=== PATIENT | female | born 1955 | race Caucasian/White ===

== ENCOUNTER 2019-10-07 14:55 | Inpatient (IN) ==
[2019-10-07 15:43] LABS: BASO# 0.01 X1000 (0.0-0.2); BASO% 0.1 % (0.0-0.8); HEMATOCRIT 40.5 % (37.0-47.0); HEMOGLOBIN 13.1 g/dL (12.0-16.0); IMM GRAN# 0.03 X1000 (0.0-0.04); IMM GRAN% 0.4 % (0.0-0.5); LYMPH# 1.61 X1000 (1.2-3.4); LYMPH% 21.2 % (20.5-51.1); MCH 31.5 PG (27-31); MCHC 32.3 g/dL (33-37); MCV 97.4 FL (81-99); MONO# 0.49 X1000 (0.11-0.59); MONO% 6.4 % (1.7-9.3); NEUT# 5.47 X1000 (1.4-6.5); NEUT% 71.9 % (42.2-75.2); PLT 266 X1000 (130-400); RBC 4.16 XMIL (4.2-5.4); RDW 14.8 % (11.5-14.5); WBC 7.61 X1000 (4.8-10.8)
--- NOTE | 2019-10-07 15:44 | PROVIDER DOCUMENTATION ---
HPI-Screening - General Chief Complaint: Sores/Lesions Stated Complaint: FEMALE SORES ON FEET Time Seen by Provider: 10/07/19 15:41 Source: patient Allergies/Adverse Reactions: Allergies Allergy/AdvReac Type Severity Reaction Status Date / Time pregabalin [From Lyrica] Allergy Severe AGITATION Verified 09/29/18 12:46 amoxicillin [Amoxicillin] Allergy Mild VOMITING Verified 09/29/18 12:46 ceftriaxone sodium * Allergy RASH Verified 09/29/18 12:46 [From Rocephin] cephalexin monohydrate * Allergy HIVES Verified 09/29/18 12:46 [From Keflex] Home Medications: Home Medication List Medication Instructions Recorded Confirmed Last Taken Type ATORVAstatin [Lipitor] 20 mg PO DAILY 05/04/15 09/29/18 09/28/18 09:00 History Amitriptyline [Elavil] 30 mg PO HS 05/04/15 09/29/18 09/28/18 22:00 History Omeprazole 20 mg PO DAILY 05/04/15 09/29/18 09/28/18 09:00 History Cyclobenzaprine HCl 10 mg PO TID 09/29/18 09/29/18 09/29/18 09:30 History Diclofenac Sodium 1 mg TOP TID 09/29/18 09/29/18 09/28/18 00:00 History Gabapentin 300 mg PO TID 09/29/18 09/29/18 09/29/18 09:30 History Ibuprofen 800 mg PO TID PRN 10 Days #30 tab 09/29/18 Unknown Rx Lidocaine 5% Patch [Lidoderm] 1 ea TOP DAILY 10 Days #10 patch 09/29/18 Unknown Rx Promethazine HCl 25 mg PO TID 09/29/18 09/29/18 09/29/18 09:30 History Tapentadol [Nucynta] 75 mg PO TID 09/29/18 09/29/18 09/29/18 09:30 History HPI: Pt. is 64 yof that presents with c/o sores or both feet. She reports she thinks she has a UTI also. She is AO x 3 and does not appear in any distress. Physical Exam-Screening - CONSTITUTIONAL General Appearance: alert, no apparent distress, thin. negative: anxious, slow to respond, obtunded, combative - SKIN Integumentary: embolic lesions (Multiple sores on both feet with surrounding erythema.), tenderness. negative: cyanosis, mottled Screening Depart - Departure ED Screening Disposition: Continued in ED for Treatment Date of Disposition Decision: 10/07/19 Time of Disposition Decision: 15:44 DIAGNOSIS: Dysuria, Skin sore Disposition: STILL A PATIENT 30 Certified Medical Emergency: Emergent Condition: Stable Referrals and Follow-Ups: None,PCP [Primary Care Provider] - Attestation - Physician/ BERTHA Attestation Patient care was provided by Advanced Practice Provider:: Yes Advanced Practice Provider:: Miriam Aguilar Advanced Practice Provider documentation review:: The Mid-level provider documentation, treatment plan and medical decision making was reviewed by the physician who agrees with all treatment and medical decision making by the MLP. The physician spent face to face time with patient:: No Advanced Practice Provider documentation review:: Supervising physician onsite and consulted in the evaluation and care of this patient. The physician did not have a face to face encounter with the patient.
[2019-10-07] MEDS ORDERED: NS 1,000 ML IV ONE ×2 (15:57)
[2019-10-07] MEDS ORDERED: CLINDAMYCIN 900 MG/NS 900 MG/50 ML IVPB IV ONE (15:59)
[2019-10-07] MEDS ORDERED: VANCOMYCIN 1 GM/NS 1 GM/250 ML IVPB IV ONE (15:59)
[2019-10-07] MEDS ORDERED: KLOR-CON PO ONE (16:11)
[2019-10-07 16:14] LABS: AGAP 15; ALB/GLOB RATIO 1.3; ALBUMIN 4.4 g/dL (3.5-5.0); ALKALINE PHOSPHATASE 157 U/L (32-104); BUN 14 mg/dL (8-22); CALCIUM 9.5 mg/dL (8.8-10.2); CHLORIDE 102 mmol/L (98-107); COSMO 287; CREATININE 0.9 mg/dL (0.5-0.9); ESTIMATED GFR > 60; GLUCOSE 91 mg/dL (70-104); GOT 18 U/L (10-30); GPT 10 U/L (10-36); POTASSIUM 2.3 mmol/L (3.5-5.1); SODIUM 144 mmol/L (136-145); TCO2 27 mmol/L (25-35); TOTAL BILIRUBIN 0.34 mg/dL (0.20-1.00); TOTAL PROTEIN 7.9 g/dL (6.3-8.3)
[2019-10-07 16:43] LABS: INR 1.03; PROTIME 13.7 Seconds (11.0-16.0)
[2019-10-07 16:44] LABS: PTT 32.3 Seconds (22.3-41.8)
--- NOTE | 2019-10-07 16:44 | EKG Report ---
Test Performed on : 10/07/2019 4:24:56 PM Test Reason : arterial insufficiency Blood Pressure : / mmHG Vent. Rate : 105 BPM Atrial Rate : 105 BPM P-R Int : 116 ms QRS Dur : 082 ms QT Int : 376 ms P-R-T Axes : 056 071 080 degrees QTc Int : 496 ms Sinus tachycardia. Cannot rule out Inferior infarct , age undetermined ST & T wave abnormality, consider anterior ischemia Abnormal ECG When compared with ECG of 04-MAY-2015 14:33, Minimal criteria for Inferior infarct are now present Non-specific change in ST segment in Inferior leads T wave inversion now evident in Inferior leads Inverted T waves have replaced nonspecific T wave abnormality in Anterior leads QT has lengthened Unconfirmed Result
--- NOTE | 2019-10-07 17:11 | Diag Imaging Result Doc PS360 ---
CHEST-PORTABLE - 10/07/2019 INDICATION: sob COMPARISON: 05/04/2015 FINDINGS: There are stable median sternotomy wires. The lungs are clear. Heart size is normal. No pneumothorax or pleural effusion. IMPRESSION: Negative exam. Electronically signed by Niko Meehan 10/07/2019 5:08 PM
--- NOTE | 2019-10-07 17:42 | Diag Imaging Result Doc PS360 ---
CT ANGIOGRAM AORTA W/RUNOFF - 10/07/2019 INDICATION: arterial insufficiency, gangrene of feet TECHNIQUE: Axial CT images were obtained after administering intravenous contrast. Three-dimensional angiographic images were generated. COMPARISON: None FINDINGS: There are sternotomy wires. Heart size is top normal. No infiltrates in the lung bases. There are cholecystectomy clips. There is severe renal atrophy with irregular cortical scarring of the left kidney. There is also a left renal stone measuring about 4 mm. This is nonobstructive. There is a cyst in the lower pole the left kidney measuring about 2.5 cm. There is a small indeterminate nodule of the left adrenal gland. This is of low density. This measures 1.4 cm and is of doubtful significance. There is some wall thickening of the distal stomach indicating gastritis. There is mild constipation. Urinary bladder, uterus, and rectum are normal. There is severe plaque buildup throughout the mid abdominal aorta with critical stenosis of over 90% narrowing. On the right side, there is critical stenosis of the common and external iliac arteries. 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 The femoral arteries and distal arteries are very small in size but there is no focal stenosis or significant plaque buildup. On the left side, there is critical stenosis of the common and external iliac arteries. There is critical stenosis of the internal iliac artery. The femoral arteries and arteries of the lower leg are small in size but without stenosis or significant plaque buildup. IMPRESSION: 1. Extremely severe vascular disease mainly of the mid abdominal aorta and the iliac artery systems. Recommend referral to vascular surgery for possible aorto biiliac bypass. 2. Other chronic, nonspecific findings. This exam was performed using automated exposure control, adjustment of mA or kV according to patient size, and/or use of iterative reconstruction technique Electronically signed by Niko Meehan 10/07/2019 5:39 PM
[2019-10-07 17:47] LABS: URINE SOURCE CLEAN CATCH
[2019-10-07 17:54] LABS: BILIRUBIN URINE NEGATIVE (NEGATIVE); BLOOD URINE NEGATIVE (NEGATIVE); COLOR YELLOW; GLUCOSE URINE NEGATIVE (NEGATIVE); KETONE URINE TRACE mg/dL (NEGATIVE); LEUKOCYTES URINE MODERATE (NEGATIVE); NITRITE URINE POSITIVE (NEGATIVE); PH URINE 6.5; PROTEIN URINE 30 mg/dL (NEGATIVE); SP GRAVITY URINE 1.038; TURBIDITY URINE HAZY (CLEAR); UROBILINOGEN URINE NORMAL (NORMAL)
[2019-10-07 17:55] LABS: UR EPITHELIAL CELLS <10 /HPF (<10); URINE BACTERIA 4+ /HPF; URINE WBC 20-40 /HPF (<10)
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
[2019-10-07 18:05] LABS: UR AMPHETAMINES QUAL NONE DETECTED (NONE DETECT); UR BARBITUATES QUAL NONE DETECTED (NONE DETECT); UR BENZODIAZEPIN QUAL NONE DETECTED (NONE DETECT); UR CANNABINOIDS QUAL NONE DETECTED (NONE DETECT); UR COCAINE QUAL NONE DETECTED (NONE DETECT); UR METHADONE QUAL NONE DETECTED (NONE DETECT); UR OPIATES QUAL NONE DETECTED (NONE DETECT); UR OXYCODONE QUAL NONE DETECTED (NONE DETECT); UR PCP QUAL NONE DETECTED (NONE DETECT)
[2019-10-07] MEDS ORDERED: MORPHINE IV ONE (18:29)
[2019-10-07] MEDS ORDERED: ZOFRAN IV ONE (18:29)
[2019-10-07] MEDS ORDERED: POTASSIUM CHLORIDE 20 MEQ/SWI 20 MEQ/100 ML IVPB IV ONE (19:17)
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
[2019-10-07] MEDS ORDERED: ZOFRAN IV PRN (20:44)
[2019-10-07] MEDS ORDERED: GENTAMICIN IV PER PHARMACY MISC SCH (20:44)
[2019-10-07] MEDS ORDERED: MIRALAX PO ONE (20:44)
[2019-10-07] MEDS ORDERED: GENTAMICIN 100 MG/NS 100 MG/100 ML IVPB IV ONE (20:44)
[2019-10-07] MEDS: NS 1,000 ML IV SCH (21:26)
[2019-10-07] MEDS: LIPITOR PO SCH (21:32)
[2019-10-07] MEDS: LOVENOX SUBQ SCH (21:32)
[2019-10-07] MEDS: MORPHINE IV PRN (21:33)
[2019-10-07] MEDS: NS IV SCH (22:42)
[2019-10-07] MEDS: GENTAMICIN IV SCH (22:42)
[2019-10-07] MEDS: DESYREL PO SCH (22:47)
[2019-10-08] MEDS: MORPHINE IV PRN ×7 (00:33→20:05)
[2019-10-08] MEDS: CLINDAMYCIN 900 MG/D5W 900 MG/50 ML IVPB IV SCH ×3 (01:43→17:35)
[2019-10-08] MEDS: NICODERM PATCH TD SCH ×3 (03:09→12:07)
[2019-10-08 07:34] LABS: HEMOGLOBIN A1C 4.8 % (4.8-6.0)
[2019-10-08 07:42] LABS: CHOLESTEROL 112 mg/dL (0-200); HDL 33 mg/dL (45-65); LDL 46 mg/dL; TRIGLYCERIDES 167 mg/dL (35-135); VLDL 33 mg/dL
[2019-10-08 07:50] LABS: BASO# 0.01 X1000 (0.0-0.2); BASO% 0.2 % (0.0-0.8); EOS# 0.01 X1000 (0.0-0.7); EOS% 0.2 % (0.0-10.0); HEMATOCRIT 31.6 % (37.0-47.0); IMM GRAN# 0.02 X1000 (0.0-0.04); IMM GRAN% 0.4 % (0.0-0.5); LYMPH% 23.4 % (20.5-51.1); MCH 31.3 PG (27-31); MCHC 31.6 g/dL (33-37); MCV 98.8 FL (81-99); MONO# 0.41 X1000 (0.11-0.59); MONO% 8.7 % (1.7-9.3); MPV 10.7 FL (7.4-10.4); NEUT# 3.16 X1000 (1.4-6.5); NEUT% 67.1 % (42.2-75.2); PLT 139 X1000 (130-400); RDW 14.6 % (11.5-14.5); WBC 4.71 X1000 (4.8-10.8)
[2019-10-08 07:54] LABS: AGAP 11; BUN 10 mg/dL (8-22); CALCIUM 8.2 mg/dL (8.8-10.2); CHLORIDE 109 mmol/L (98-107); COSMO 282; CREATININE 0.7 mg/dL (0.5-0.9); ESTIMATED GFR > 60; GLUCOSE 95 mg/dL (70-104); MAGNESIUM 1.8 mg/dL (1.5-2.7); SODIUM 142 mmol/L (136-145); TCO2 22 mmol/L (25-35)
[2019-10-08 08:18] LABS: POTASSIUM 2.4 mmol/L (3.5-5.1)
[2019-10-08] MEDS: PERICOLACE PO SCH ×3 (08:40→18:29)
[2019-10-08] MEDS: NS 1,000 ML IV SCH (08:40)
[2019-10-08] MEDS: PLAVIX PO SCH (08:41)
[2019-10-08] MEDS: PLETAL PO SCH (08:41)
[2019-10-08] MEDS: PRILOSEC PO SCH (08:41)
[2019-10-08] MEDS ORDERED: KLOR-CON PO ONE (09:40)
[2019-10-08] MEDS: POTASSIUM CHLORIDE 20 MEQ/SWI 20 MEQ/100 ML IVPB IV SCH ×2 (11:43→14:49)
--- NOTE | 2019-10-08 14:02 | ECHO REPORT ---
ORDER DATE: 10/07/2019 INTERPRETING PHYSICIAN: Kalin Iglesias MD. ECHOCARDIOGRAPHIC MEASUREMENTS: 1. Interventricular septum 1.2. 2. Left ventricular posterior wall 1.6. 3. Diastolic diameter 4.3. 4. Left atrium 3.1. 5. Aorta 2.3. FINDINGS: 1. Mitral valve was normal. 2. Aortic valve leaflets were trileaflet. 3. Tricuspid valve was normal. 4. Pulmonic valve was normal. 5. Normal left ventricular cavity size. Concentric left ventricular hypertrophy. Estimated ejection fraction of 60%. 6. Technically suboptimal study. Poor apical windows. 7. There is mild tricuspid regurgitation. Peak velocity across the tricuspid valve was 2.9 m/sec. Pulmonary artery systolic pressure of 32 mmHg. There is mild mitral regurgitation. Peak velocity across the aortic valve less than 2 m/sec. There is no aortic stenosis or regurgitation. There is grade 1 diastolic dysfunction. 8. There is no pericardial effusion or obvious intracardiac mass or thrombus seen. 9. Anterior echo-free space suggestive of pericardial fat pad noted. cc: MD Kamran Beltran MD
--- NOTE | 2019-10-08 19:21 | PROGRESS NOTE ---
DATE: 10/08/2019 SUBJECTIVE: The patient is doing okay. No major complaints. OBJECTIVE: Blood pressure 115/53, heart rate 96, respiratory 16, temperature 98 degrees, 94% on room air. Cardiovascular: Regular rate and rhythm. Pulmonary: Bilateral breath sounds. Clear to auscultation Gastrointestinal: Soft, nontender, nondistended. Bowel sounds are positive. Extremities: She has red, diffusely erythematous, cold feet, with large black eschars which are gangrenous over her toes, the anterior portion of her feet. She has one on the back of her right heel with malodorous content. She has been placed on gentamicin and clindamycin, interestingly enough. IMPRESSION: 1. She has ischemic arterial insufficiency ulcers associated with severe peripheral vascular disease. She is going to need some sort of revascularization. She is on antibiotics, but she is allergic to penicillin and cephalosporins. Azactam may be an option. Gentamicin is a little bit concerning because of possible kidney dysfunction, but she seems to be doing okay. 2. Severe aortoiliac disease. We will continue treatment. She is on aspirin. The plan is to get evaluated by Surgery and plan for a bypass. She is on Plavix already. We will continue to monitor. Surgical team including Dr. Ridley and Dr. Malloy are involved in her care. DISPOSITION: Pending her clinical status. She is going to need some sort of wound care on those lesions, so we will continue to follow. cc: Azar Duenas MD
[2019-10-08] MEDS: DESYREL PO SCH (20:05)
[2019-10-08] MEDS: LOVENOX SUBQ SCH (20:05)
[2019-10-08] MEDS: LIPITOR PO SCH (20:05)
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
[2019-10-09] MEDS: CLINDAMYCIN 900 MG/D5W 900 MG/50 ML IVPB IV SCH ×3 (00:09→18:13)
[2019-10-09] MEDS: MORPHINE IV PRN ×6 (00:12→23:08)
[2019-10-09 07:17] LABS: HEMATOCRIT 32.5 % (37.0-47.0); HEMOGLOBIN 10.2 g/dL (12.0-16.0); LYMPH# 1.04 X1000 (1.2-3.4); LYMPH% 26.8 % (20.5-51.1); MCH 31.2 PG (27-31); MCHC 31.4 g/dL (33-37); MCV 99.4 FL (81-99); MONO# 0.31 X1000 (0.11-0.59); MPV 10.7 FL (7.4-10.4); NEUT# 2.53 X1000 (1.4-6.5); NEUT% 65.2 % (42.2-75.2); PLT 137 X1000 (130-400); RBC 3.27 XMIL (4.2-5.4); RDW 14.7 % (11.5-14.5); WBC 3.88 X1000 (4.8-10.8)
[2019-10-09 07:44] LABS: AGAP 17; BUN 7 mg/dL (8-22); CALCIUM 8.3 mg/dL (8.8-10.2); CHLORIDE 107 mmol/L (98-107); COSMO 283; CREATININE 0.7 mg/dL (0.5-0.9); ESTIMATED GFR > 60; GLUCOSE 95 mg/dL (70-104); POTASSIUM 3.1 mmol/L (3.5-5.1); SODIUM 143 mmol/L (136-145); TCO2 19 mmol/L (25-35)
[2019-10-09] MEDS: PERICOLACE PO SCH ×3 (08:30→18:13)
[2019-10-09] MEDS: PLAVIX PO SCH (08:31)
[2019-10-09] MEDS: PLETAL PO SCH (08:31)
[2019-10-09] MEDS: NICODERM PATCH TD SCH (08:31)
[2019-10-09] MEDS: PRILOSEC PO SCH (08:31)
[2019-10-09] MEDS ORDERED: SANTYL OINT TOP SCH (09:00)
[2019-10-09] MEDS: GENTAMICIN IV SCH (10:49)
[2019-10-09] MEDS: NS IV SCH (10:49)
[2019-10-09] MEDS ORDERED: POTASSIUM CHLORIDE 60 MEQ in NS 500 ML IV ONE (12:00)
[2019-10-09] MEDS ORDERED: AZACTAM 1 GM in NS 50 ML IV SCH (13:00)
[2019-10-09] MEDS: AZACTAM 1 GM in NS 50 ML IV SCH ×2 (14:01→20:26)
--- NOTE | 2019-10-09 15:09 | PROGRESS NOTE ---
DATE: 10/09/2019 SUBJECTIVE: The patient reports feeling fine. No pain in both legs. OBJECTIVE: Vital Signs: Temperature 98.1 degrees, heart rate 103, respiratory 16, blood pressure 112/50, O2 saturation 100% on room air. General Examination: This is a chronically ill- appearing, 64-year-old female, lying in bed in no acute distress. Cardiovascular exam: S1, S2 heard. No murmurs, gallops, or rubs. Regular rate and rhythm. Respiratory exam: Clear bilaterally to auscultation. No work of breathing or using accessory muscles. Abdomen: Soft, nontender to palpation. Bowel sounds present. No organomegaly. Extremities: She has erythematosus rash diffusely all over both lower extremities. Both feet are cold to touch. There are large black eschars which are gangrenous over her toes, anterior portion of the feet and also the heel; the last 1 has malodorous content, but is wrapped. LABORATORY DATA: Lab data reveals white cell count 3.88, hemoglobin 10.2, hematocrit 32.5 with potassium 3.1. Normal renal function. ASSESSMENT AND PLAN: 1. Ischemic arterial insufficiency ulcer associated with severe peripheral vascular disease. General Surgery has been consulted. We will see what they have to say. Most likely, patient will need surgery as an outpatient for those infected wounds. I stopped gentamicin and placed this patient on Azactam, and the patient is also receiving clindamycin as well. We will continue with same management. 2. Severe aortoiliac disease. Patient is on aspirin and Pletal. Dr. Ridley from General Surgery will evaluate this patient. We will see what he has to say. 3. Hyperkalemia, resolved. There is no obvious source because she is not having diarrhea or being on any diuretic. In any case, we will continue to replete potassium today. 4. Disposition: I think if potassium is okay and Surgery is not planning to do any surgery while she is here, then she can be discharged tomorrow. cc: Migue Jo MD
[2019-10-09] MEDS: LIPITOR PO SCH (20:28)
[2019-10-09] MEDS: DESYREL PO SCH (20:28)
[2019-10-09] MEDS: LOVENOX SUBQ SCH (20:29)
--- NOTE | 2019-10-09 20:35 | GENERAL SURGERY PROGRESS NOTE ---
DATE: 10/09/2019 SUBJECTIVE: There have been no acute events or changes overnight. OBJECTIVE: She is afebrile. Vital signs are stable.General: She is awake and alert, oriented x3, in no acute distress. Extremities are stable with chronic dry ulcers, mild swelling and erythema. IMAGING: The lower extremity arterial study revealed minimal arterial waveforms at the popliteal level and distally, and there were blunted waveforms in the thigh. The ABIs were all very low, and this indicates bilateral proximal stenosis of the aortoiliac region which was also seen on CT angiogram. ASSESSMENT AND PLAN: A 64-year-old female with: 1. Aortoiliac occlusive disease. 2. Nonhealing lower extremity ulcers. We are going to set her up for follow up with Dr. Ridley next week. She should paint her ulcers with Betadine daily, and we anticipate his recommendation of either aortobifemoral bypass or above- knee amputations. cc: Kwan Malloy MD
[2019-10-10] MEDS: MORPHINE IV PRN ×6 (00:55→21:55)
[2019-10-10] MEDS: CLINDAMYCIN 900 MG/D5W 900 MG/50 ML IVPB IV SCH ×2 (02:05→08:55)
[2019-10-10] MEDS: AZACTAM 1 GM in NS 50 ML IV SCH ×3 (04:53→21:48)
[2019-10-10 07:16] LABS: BASO# 0.01 X1000 (0.0-0.2); BASO% 0.3 % (0.0-0.8); HEMATOCRIT 31.6 % (37.0-47.0); IMM GRAN# 0.02 X1000 (0.0-0.04); IMM GRAN% 0.5 % (0.0-0.5); LYMPH# 1.14 X1000 (1.2-3.4); MCH 31.2 PG (27-31); MCHC 31.6 g/dL (33-37); MCV 98.4 FL (81-99); MONO# 0.38 X1000 (0.11-0.59); MONO% 9.7 % (1.7-9.3); MPV 10.7 FL (7.4-10.4); NEUT# 2.38 X1000 (1.4-6.5); NEUT% 60.5 % (42.2-75.2); PLT 141 X1000 (130-400); RBC 3.21 XMIL (4.2-5.4); RDW 14.5 % (11.5-14.5); WBC 3.93 X1000 (4.8-10.8)
[2019-10-10] MEDS: PERICOLACE PO SCH ×3 (08:56→21:48)
[2019-10-10] MEDS: NICODERM PATCH TD SCH (08:56)
[2019-10-10] MEDS: PRILOSEC PO SCH (08:56)
[2019-10-10] MEDS: PLAVIX PO SCH (08:56)
[2019-10-10] MEDS: PLETAL PO SCH (08:56)
[2019-10-10 09:09] LABS: AGAP 15; BUN 8 mg/dL (8-22); CALCIUM 8.4 mg/dL (8.8-10.2); CHLORIDE 105 mmol/L (98-107); COSMO 279; CREATININE 0.6 mg/dL (0.5-0.9); GLUCOSE 90 mg/dL (70-104); POTASSIUM 2.9 mmol/L (3.5-5.1); SODIUM 141 mmol/L (136-145); TCO2 21 mmol/L (25-35)
--- NOTE | 2019-10-10 12:20 | VASCULAR LAB ---
PROCEDURE NAME: Arterial Bilateral Legs - 10/09/2019 REQUESTING PHYSICIAN: Dr. Malloy. ER MEDICAL TECHNICIAN: Shakira. INDICATIONS: 1. Ulcer of toe, both legs. 2. Peripheral vascular disease. FINDINGS: Segmental pressures are as follows: Right brachial 125, left 128. Right proximal thigh 39, left 46. Right distal thigh 44, left 31. Right popliteal 36, left 33. Right dorsalis pedis 35, left 28. Right posterior tibial 38, left 26. Right great toe not measured, left not measured. Right WALTER 0.30, left 0.22. Right TBI not measured, left not measured. Waveforms: Faint waveforms noted which are almost monophasic in the proximal thigh on the right to the lower thigh on the right. There is essentially no waveform noted distally. On the left side, there is only a monophasic waveform noted in the proximal thigh but essentially no waveforms noted distally to this. INTERPRETATION: Likely severe and critical vascular disease likely centrally located. I would recommend getting a CT angiography of the aorta with bilateral lower extremity runoff to evaluate proximal disease. The patient has a low likelihood of being able to heal any wounds given these findings. cc: MD Kwan Read MD
[2019-10-10] MEDS: POTASSIUM CHLORIDE 60 MEQ in NS 500 ML IV SCH (14:06)
--- NOTE | 2019-10-10 15:04 | PROGRESS NOTE ---
DATE: 10/10/2019 SUBJECTIVE: Patient reports feeling fine. No complaints at this time. OBJECTIVE: Vital Signs: Temperature 97.6 degrees, heart rate 96, respiratory rate 20, blood pressure 113/56, and O2 saturation 97% on room air. General: On examination, this is a 64-year- old female, lying in bed, in no acute distress. Cardiovascular: S1 and S2 heard. No murmurs, gallops, or rubs. Regular rate and rhythm. Respiratory: Clear bilaterally to auscultation. No work of breathing. Not using accessory muscles. Abdomen: Soft, nontender to palpation. Bowel sounds present. No organomegaly. Extremities: She has noted a rash diffusely all over both lower extremities. Both feet continues to be cold to touch. There are large black eschars which are gangrenous over her toes, anterior portion of the feet and heel as well. Neurological: Patient is alert and oriented x3. Moves 4 extremities. LABORATORY DATA: Reviewed. ASSESSMENT AND PLAN: 1. Ischemic arteriovenous insufficiency ulcers associated with severe peripheral vascular disease. Patient has been evaluated by General Surgery, and they have decided to do revascularization surgery as an outpatient. For treatment of this infection, we will continue with Azactam and clindamycin. We will continue with the same management. 2. Severe aortoiliac disease. Patient is on aspirin and Pletal. We will continue with same medication. 3. Hypokalemia. There was no obvious source of low potassium. Even though we have replenished potassium, today the potassium is still low, so we are going to provide 60 mEq of potassium today. 4. Disposition. I think if the patient's potassium is back to normal, I think she can be discharged with a followup with Dr. Ridley in the office. cc: Migue Jo MD [facility]
[2019-10-10] MEDS: DESYREL PO SCH (21:47)
[2019-10-10] MEDS: LOVENOX SUBQ SCH (21:48)
[2019-10-10] MEDS: LIPITOR PO SCH (21:48)
[2019-10-11] MEDS: POTASSIUM CHLORIDE 60 MEQ in NS 500 ML IV SCH (00:07)
[2019-10-11] MEDS: CLINDAMYCIN 900 MG/D5W 900 MG/50 ML IVPB IV SCH ×2 (00:24→09:27)
[2019-10-11] MEDS: MORPHINE IV PRN ×2 (00:55→04:33)
[2019-10-11] MEDS: AZACTAM 1 GM in NS 50 ML IV SCH ×2 (04:23→05:50)
[2019-10-11] MEDS ORDERED: NORCO-5 PO PRN (05:39)
[2019-10-11] MEDS ORDERED: ZOFRAN ODT PO PRN (05:39)
[2019-10-11 08:14] LABS: BASO# 0.01 X1000 (0.0-0.2); BASO% 0.3 % (0.0-0.8); EOS# 0.01 X1000 (0.0-0.7); EOS% 0.3 % (0.0-10.0); HEMATOCRIT 32.9 % (37.0-47.0); HEMOGLOBIN 10.4 g/dL (12.0-16.0); LYMPH# 0.95 X1000 (1.2-3.4); LYMPH% 25.4 % (20.5-51.1); MCHC 31.6 g/dL (33-37); MCV 97.9 FL (81-99); MONO# 0.39 X1000 (0.11-0.59); MONO% 10.4 % (1.7-9.3); MPV 10.1 FL (7.4-10.4); NEUT# 2.38 X1000 (1.4-6.5); NEUT% 63.6 % (42.2-75.2); PLT 147 X1000 (130-400); RBC 3.36 XMIL (4.2-5.4); RDW 14.6 % (11.5-14.5); WBC 3.74 X1000 (4.8-10.8)
[2019-10-11 08:37] LABS: AGAP 13; BUN 9 mg/dL (8-22); CALCIUM 9.1 mg/dL (8.8-10.2); CHLORIDE 108 mmol/L (98-107); COSMO 280; CREATININE 0.8 mg/dL (0.5-0.9); ESTIMATED GFR > 60; GLUCOSE 98 mg/dL (70-104); POTASSIUM 4.2 mmol/L (3.5-5.1); SODIUM 141 mmol/L (136-145); TCO2 20 mmol/L (25-35)
[2019-10-11] MEDS: PLAVIX PO SCH (09:26)
[2019-10-11] MEDS: PLETAL PO SCH (09:26)
[2019-10-11] MEDS: PERICOLACE PO SCH (09:26)
[2019-10-11] MEDS: PRILOSEC PO SCH (09:26)
[2019-10-11] MEDS: NICODERM PATCH TD SCH (09:27)
--- NOTE | 2019-10-11 09:46 | DISCHARGE SUMMARY ---
ADMISSION DATE: 10/07/2019 DISCHARGE DATE: 10/11/2019 REASON FOR ADMISSION: Ms. Mandy Orourke has no primary care physician. She presented with lower extremity pain, chronic ulcerations on her feet, both her lower extremities. HISTORY OF PRESENT ILLNESS: Ms. Orourke is a 64-year-old woman, past medical history of kidney stones, peripheral artery disease, fibromyalgia, came to our facility with complaint of chronic lower extremity pain in both legs and feet since April of this year. States that the pain was initiated by the fact that her dog had caused some gashes in her left foot and had been bitten by multiple fire ants. She has tried to self treat at home. These ulcers never completely healed even though they did regress in size. She says the pain in her feet and legs got worse with ambulation. She does not have any warmth or localized tenderness in that part of her leg. She says sometimes the pain emanates from the lower part of her back, radiating down to her buttocks and through the area when she exerts herself. She denies any shortness of breath, chest pain, angina type pain. Denies any leg swelling, discoloration in the feet. She denies any exudation of these ulcers in her feet, no drainage. ALLERGIES: Cephalosporins, Amoxil, Lyrica. The patient admits to having chronic constipation and some dysuria and treated a couple weeks ago for an infection, got better on antibiotics. No focal neurologic complaints. So, admitted with: 1. Severe aortoiliac disease. Leriche syndrome. 2. Arterial ulcerations of the lower extremities secondary to #1. 3. Urinary tract infection. 4. Tobacco use. 5. Hyperlipidemia. 6. Hypokalemia, etiology indeterminate. They did supplement. 7. Mild cellulitis of the left foot. HOSPITAL COURSE: So admitted. The patient was screened for risk factors, peripheral artery disease such as diabetes, hyperlipidemia, and Vascular Surgery, Dr. Tomas Ridley, was consulted for possible need for vascular bypass in the lower extremities. Smoking cessation was instituted and counseled on the importance of quitting smoking and placed on some clindamycin. She was given gentamicin for her possible urinary tract infection. She is allergic to penicillin and cephalosporins and she had an aortogram, a CTA with runoff, extremely severe vascular disease mainly at the mid abdominal aorta and iliac artery systems was appreciated. Chest x-ray on 10/07/2019 was negative, no infiltrate. Echocardiogram with Doppler, the mitral valve was normal, aortic valve leaflets were trileaflet, tricuspid valve was normal, pulmonic valve normal, normal left ventricular cavity size with an ejection fraction of 60%, there was mild tricuspid regurgitation, pulmonary artery pressure was 32 mmHg, mild mitral regurgitation, there was no pericardial effusion. Dr. Kwan Malloy was consulted, felt she had chronic arterial disease involving the aorta and iliac arteries, would likely need aortofemoral bypass and counseled her to quit smoking and started on aspirin. Lower extremity study was reviewed by the surgeons. She had an extremity study done on 10/09/2019, likely severe critical vascular disease which is likely centrally located her and so they got a CT angiograph as reviewed above with bilateral lower extremity runoff. She will be set up with Dr. Ridley next week. She continued to paint her ulcers with Betadine daily and she was ready to go home on 10/11/2019. DISCHARGE MEDICATIONS: She will be on Lipitor 40 mg at bedtime. She will be on Pletal 100 mg daily. Clindamycin will stop and the aztreonam will stop as well. Plavix 75 mg a day. NicoDerm patch 21 mg daily, Prilosec 20 mg daily and trazodone 100 mg at bedtime. I do not think she needs any further antibiotics. FOLLOWUP: Will follow up with surgery next week. cc: Jeff Mirza MD
[2019-10-11 11:25] VITALS: BP 92/64
== END 2019-10-11 14:14 | disposition home or self-care (01) | DRG 300 ==
LOC: ED 14:55 → 3N 19:57 → SUATTDRO 19:57
PROVIDERS: ATTEND Emergency Medicine